=== PATIENT | female | born 1970 | race Caucasian/White ===

== ENCOUNTER → 2019-05-30 14:37 | Outpatient (CLI) | payer OTHER, SELFPAY ==
[2019-06-05 05:07] LABS: Age Gdln ACOG Testing 30-65 (.)
[2019-06-06 12:19] LABS: HPV APTIMA, High Risk Negative (Negative)
[2019-06-06 12:20] LABS: HPV Reflexed? YES, CHARGE PATIENT
== END ==
PROVIDERS: Referring Provider Obstetrics & Gynecology; Visit Provider Obstetrics & Gynecology
DX: Z12.4 Encounter for screening for malignant neoplasm of cervix (principal)
CPT/HCPCS: 87624; 88175; G0145

== ENCOUNTER → 2019-06-25 13:17 | Outpatient (CLI) | payer OTHER, SELFPAY ==
--- NOTE | 2019-06-25 13:26 | BI_ITS ---
MAMMOGRAPHY - BILATERAL SCREENING REASON FOR EXAM: Female, 48 years old. Routine annual screening examination. PERTINENT HISTORY: Non-contributory. TECHNIQUE: Digital bilateral breast victoriano (3D mammographic acquisition) in the CC and MLO projections. 2-D mediolateral oblique (MLO) and craniocaudad (CC) views of both breasts were obtained. CAD: Full Field Digital Mammography with Computer Added Detection was performed. COMPARISON: Comparison is made with prior study dated July 21, 2016. FINDINGS: Breast Composition: The breasts are heterogeneously dense, which may obscure small masses. There are no dominant masses or suspicious calcifications. Stable benign appearing bilateral axillary lymph nodes. No other significant abnormalities are identified. There has been no significant change since the prior study. BI/SCREEN MAMM (CAD) W/VICTORIANO BILAT IMPRESSION: Stable bilateral screening mammogram. Yearly follow-up mammogram recommended. (A) ASSESSMENT CATEGORY: BIRADS Category 2: Benign. A letter regarding these results will be sent to the patient by the facility within 30 days. Approximately 10% of breast cancers are not detected by mammography. A normal mammogram should not delay biopsy of a clinically suspicious abnormality. [id number] Electronically Signed: Pedro Beckford, at 14:49 EST , Service support ,
== END ==
PROVIDERS: Referring Provider Obstetrics & Gynecology; Visit Provider Obstetrics & Gynecology
DX: Z12.31 Encounter for screening mammogram for malignant neoplasm of breast (principal)
CPT/HCPCS: 77063; 77067

== ENCOUNTER 2019-07-04 10:22 | Day surgery (SDC) | payer OTHER, SELFPAY ==
--- NOTE | 2019-07-01 06:28 | HP.PCM_ITS ---
History and Physical Date of Admission: 07/04/19 On 06/25/2019, Debbie Kimball, a 48 year old female 3 0 0 0 3, pr esented for: -- Here for HOME DEPOT REP sono and follow up discussion re her heavy periods. CC of heavy, painful, clotty periods w/ 2 days out of the 6 being the worst. Some months worse than others, but always fearful the current one will be bad so she is afraid to leave the house. States she has never saturated a large pad per hr, but has in 2 hrs at times. Had been on OCPs in past. Has white coat syndrome. States she used a progesterone only ocp, but stopped taking this d/t daily EVANS's. States was taken off OCP in past d/t BP. On no prescription meds. C/S x 2 prior. had a vasectomy. Non-smoker. SONO today: no fibroids UTERUS: 9.4 x 8.6 x 5.8 cm and is retroverted and inhomogenous and globular in texture.. ENDOMETRIAL ECHO: 1.3 cm. RIGHT OVARY: 2.3 x 1.7 x 2 cm and contains a simple cyst measuring 1.8 x 1.4 x 1.3 cm. LEFT OVARY: 2.9 x .8 x .9 cm. Reviewed findings as above on sono. She was given information to read and consider prior re her options for treatment of heavier periods. Declines any OCP or hormonal contraception, no interest in IUD. Prefers to try the endometrial ablation. EB ALLERGIES: NKA and No Known Drug Allergies MEDICATIONS HISTORY: None. Review of Symptoms: GENERAL - Denies fever, or chills SKIN - Denies skin changes EYES - Denies visual changes EARS - Denies difficulty hearing NOSE - Denies nasal congestion or bleeding MOUTH - Denies sore throat or difficulty swallowing NECK - Denies pain or swelling RESPIRATORY - Denies shortness of breath or wheezing CARDIOVASCULAR - Denies palpitations or chest pain GASTROINTESTINAL - Denies nausea, vomiting, diarrhea, constipation GENITOURINARY - heavy menses MUSCULOSKELETAL - Denies joint or muscle pain NEUROLOGICAL - Denies localized numbness or weakness PSYCHIATRIC - Denies depression or anxiety ENDOCRINE - Denies heat or cold intolerance, weight loss or gain HEMATO-IMMUNOLOGIC - Denies excessive bleeding with cuts PAST HISTORY: Breast/Ovarian/Colon Cancers - Denies Infections - Chicken pox childhood Illnesses - allergies Accidents - no injuries of consequence History of Abnormal PAPS - yes, once, mild Hospitalizations - Childbirth and see surgery SURGICAL HISTORY: 1. 12/02/1998 2. 08/28/2003 , R Fortunato Repeat 3. Eyelid surgery, 12/07 MENSTRUAL HISTORY: LMP Known?- DefiniteAmount/Duration - 6 days, Regularity - Regular, Frequency - monthly days, LMP - 05/20/19, Age Onset Menarche - 14 PAST PREGNANCIES: Total Pregnancies - 3; Full Term Pregnancies - 3; Premature - 0; Abortions, Induced - 0; Abortions, Spontaneous - 0; Ectopics - 0; Multiple Births - 0; Living Children - 3 FAMILY HISTORY (OLD): Father: Hypothyroid. Brother: Hypertension. Maternal Grandfather: Heart Disease. Paternal Grandmother: Heart Disease. 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 Routine Gynecologic Exam no abnormal findings 2. Encounter For Screening Mammogram For Malignant Neoplasm Of Breast 3. Excessive Bleeding In The Premenopausal Period PLAN BY DIAGNOSIS: 1. Excessive Bleeding In The Premenopausal Period Has had several very heavy periods. Has passed large clots and has had to change protection to avoid over bleeding with clots. Limiting her lifestyle as insecure about leaving house when on her periods. Multiple OCPs in past. Declines other hormonal contraception for this. Reviewed other options at last visit and after consideration of the written material given at last visit: Declines IUD. Would like to proceed with hysteroscopy, D and C with endometrial ablation. Pelvic sono today , results reviewed: No fibroids. R,B,A of the procedure reviewed. Discussed anticipated preop, operative and postop recovery including pain postop and return to activities pos top. After discussion, requests surgery. Will schedule hysteroscopy, D and C and endometrial ablation. RTO for postop check 2 wk after scheduled procedure. The visit was approximately 20 minutes in length with most of the time spent in discussion and counseling. 2. Elevated Blood-pressure Reading, Without Diagnosis Of Hypertension Will continue to monitor BPs. Believes she has white coat syndrome.
[2019-07-04] VITALS (8 sets, daily range): BP systolic 128–147; BP diastolic 65–91; PULSE 65–86; RESP 16; TEMP 36.8–37.1; O2SAT 96–100; BMI 35.4
[2019-07-04 11:03] LABS: Internal QC Validated? YES +Cl - CLEAR BKGD; Pregnancy, Urine Negative Negative
[2019-07-04 11:04] LABS: Hematocrit 39.3 % (37-47); Hemoglobin 12.8 g/dL (12.0-15.0); Mean Corp Hgb Conc 32.6 g/dL (32-36); Mean Corpuscular Hgb 27.5 pg (27.0-32.0); Mean Corpuscular Volume 84.5 fL (81-99); Mean Platelet Vol. 9.2 fl (6.2-12.0); Platelet Count 215 K/mm3 (150-450); RBC Distribution Width CV 13.4 % (11.6-14.6); RBC Distribution Width SD 41.7 fl (35.1-43.9); Red Blood Count 4.65 M/mm3 (4.2-5.4); White Blood Count 4.9 K/mm3 (4.4-11.0)
[2019-07-04 11:12] LABS: International Normalized Ratio 1.1; Prothrombin Time (Protime)PT. 13.5 SECONDS (11.7-14.9)
[2019-07-04 11:13] LABS: Partial Thromboplast Time 30.8 Seconds (24.1-36.2)
[2019-07-04] MEDS: Lactated Ringers 1,000 ML 100 ML IV ×2 (11:22→14:08)
--- NOTE | 2019-07-04 12:00 | EMB_PTH ---
PATIENT: TONY PICHARDO [place] [facility] [id number] AGE/SX: 48/F ROOM: RE07/04/[address]: Dr. Roxie Low MD : 1970 BED: DIS: 07/04/2019 SPEC #: [id number] RECD: 07/04/19 16:47 STATUS: CARRIE RERosalie #: [id number] LISE: 07/04/19 12:[address]: Roxie Low DEPT: SURGICAL PATHOLOGY RECD BY: Néstor Lr ENTERED: 07/05/19 10:03 SP TYPE: ENDOM BX/C OTHR DR: Dr. Gt Floyd MD Tissues: Endometrium, NOS Procedures: Surgery Specimen Level IV HEADER OPERATION: Hysteroscopy, D & C hydroblation PRE-OP DIAGNOSIS: Excessive bleeding in premenopausal period TISSUE SUBMITTED: Endometrial curettings MICROSCOPIC DIAGNOSIS Endometrial curettings: Secretory endometrium. SJ:juan pablo 07/06/19 MICROSCOPIC DESCRIPTION Slides are reviewed. GROSS DESCRIPTION Received in fixative is one container labeled with the patient's name and designated endometrial curettings. The specimen consists of multiple mucoid fragments of light valles soft tissue that in aggregate measure 2.5 x 2 x 0.2 cm. The specimen is totally submitted in one cassette. / AM:juan pablo 07/05/19 TC:5 CPT: 03441
--- NOTE | 2019-07-04 12:31 | DCINST_ITS ---
Discharge Diet: No Restrictions Discharge Activity: May not drive while taking narcotic pain medications., May Shower, May Take a Tub Bath Return to work on:: 07/06/19 May resume sexual activity in: 1 week - when comfortable. Call your doctor if you observe: Fever of 101 or Higher, Inability to have a bowel movement, Using more than one pad per hour, Uncontrolled pain Allergies/Adverse Reactions: Allergies No Known Allergies Allergy (Verified 07/03/19 08:40) Medications to take at Discharge Ranitidine [Zantac] 150 mg PO PRN PRN 07/03/19 Oxycodone [Oxyir] 5 mg PO Q6H PRN PRN 1 Days #4 tablet 07/04/19 The following prescriptions were given: Oxycodone [Oxyir] 5 mg PO Q6H PRN PRN 1 Days #4 tablet PRN Reason: Mod-Severe Pain (-05/03) Transmission Status: Received by [id number] Primary Care Physician: Gt Floyd MD [Primary Care Provider] - Test Results: Test results from this visit will be discussed in further detail at your follow- up appointment, if applicable. Please Follow Up With: Roxie Low MD - [phone] When: in 1-2 wk for postop checkup Proposed Discharge Date: 07/04/19
[2019-07-04] MEDS: Lubricating Jelly 60 GM Tube 30 GM TOPICAL (13:00)
--- NOTE | 2019-07-04 16:56 | PCM.OPRPT ---
Report of Operation Date of Procedure: 07/04/19 Pre-Operative Diagnosis: Excessive bleeding in premenopause Post-Operative Diagnosis: Same Surgery/Procedure Performed:: Hysteroscopy, D and C, hydrothermal ablation. Description of Surgical Findings:: Findings: Hysteroscopic findings: Normal-appearing , fluffy endometrium. Neither tubal ostia visualized . Type of Anesthesia:: Local MAC Anesthesiologist: Shahram Queen CRNA Specimen's removed: Uterine curettings Drains: Red Reid prior to case, clear yellow urine Estimated Blood Loss (mL): 20 Fluids Replaced: LR Description of Procedure: Findings: Uterus anteverted. 10 cm cavity length with 4 cm cervical length. Hysteroscopic findings: Normal-appearing , fluffy endometrium. Neither tubal ostia visualized . Narrative account: After the risks, benefits, alternatives of the procedure have been reviewed with the patient, informed consent was obtained. The patient was taken to the operating room with an IV running. She was positioned on the operating table in dorsal supine position, where she was given MAC IV sedation. Once asleep she was repositioned into the dorsal lithotomy position and prepped and draped in the usual sterile fashion. A red Reid catheter was used to drain the bladder prior to initiating the case. A Graves speculum was placed into the vagina and the cervix was brought into view. A single-tooth tenaculum was applied to the anterior lip of the cervix. 10 cc of lidocaine with epinephrine was instilled as a paracervical block. The cervix was sequentially dilated to allow admission of the hysteroscope. The uterus sounded to 10 cm and was slightly anteverted with a 4 cm endocervical length. The hysteroscopy was performed with the findings noted above. A sharp curettage was then performed and pieces of tissue were were withdrawn and set aside for later pathology review. There was good crei in all quadrants The Denise device was opened but due, likely, to the irregularly shaped uterine cavity the device would not open properly within the uterus and could not be used for the ablation. The Hydrothermal ablation device was brought into the room and set up. The 10 minute Hydrothermal ablation (HTA) was performed. At the completion of the treatment cycle the device was cooled and removed from the patient. At this point the procedure was terminated the single-toothed tenaculum was removed from the anterior lip of the cervix and a Ray-Sari gauze was used to remove any remaining tissue and blood from the upper vagina and cervix. Excellent hemostasis was noted. The speculum was removed. The patient was returned to dorsal supine position and awakened from IV sedation and then transferred to her recovery room bed in stable condition after tolerating the procedure well. Sponge, lap, needle, and instrument counts were correct x2. Medications given intraoperatively included 10 cc of lidocaine with epinephrine instilled as a paracervical block. For complete listing the medications given intraoperatively, see the anesthesia record. - Complications None. - Admit VTE Documentation VTE Present on Admission: No VTE Mechan Device Prophylaxis: [facility] [place] Prophylaxis ordered?: No
== END 2019-07-04 15:34 | disposition home or self-care (01) ==
LOC: SDC 10:41 → AC 10:41
PROVIDERS: Anesthesiology; Family Provider Family Medicine; PCP Family Medicine; Referring Provider Obstetrics & Gynecology; Visit Provider Obstetrics & Gynecology
PROC: 0U5B8ZZ Destruction of Endometrium, Via Natural or Artificial Opening Endoscopic (ICD-10-PCS; CPT 58558; principal; 2019-07-04 11:45)
DX: N92.4 Excessive bleeding in the premenopausal period (principal); R03.0 Elevated blood-pressure reading, without diagnosis of hypertension
CPT/HCPCS: 00952; 58563; 36415; 81025; 85027; 85610; 85730; 86850; 86900; 86901; 88305; J7120; J2405

== ENCOUNTER → 2019-11-28 | Outpatient (CLI) | payer OTHER, SELFPAY ==
[2019-07-04 11:11] VITALS: BMI 35.4
[2019-11-28 18:14] LABS: Hematocrit 31.5 % (37-47); Hemoglobin 9.8 g/dL (12.0-15.0)
== END | disposition home or self-care (01) ==
PROVIDERS: Visit Provider Obstetrics & Gynecology
DX: N92.0 Excessive and frequent menstruation with regular cycle (principal)
CPT/HCPCS: 85014; 85018

== ENCOUNTER → 2020-02-13 14:34 | Outpatient (CLI) | payer OTHER, SELFPAY ==
[2019-07-04 11:11] VITALS: BMI 35.4
[2020-02-13 15:52] LABS: Hematocrit 40.9 % (37-47)
== END ==
PROVIDERS: Visit Provider Obstetrics & Gynecology
DX: N92.4 Excessive bleeding in the premenopausal period (principal)
CPT/HCPCS: 36415; 85014; 85018

== ENCOUNTER → 2021-03-24 12:12 | Outpatient (CLI) | payer OTHER, SELFPAY ==
--- NOTE | 2021-03-24 12:21 | US_ITS ---
INDICATION: UTI EXAMINATION: Ultrasound US Kidney(s) complete (eg, kidneys and bladder) TECHNIQUE: Masters scale and color doppler images were obtained of the kidneys. COMPARISON: None. FINDINGS: RIGHT KIDNEY: Limited evaluation of the lower pole of the right kidney due to bowel gas. The right kidney demonstrates unremarkable echogenicity, unremarkable vascularity, unremarkable size, shape and configuration, no evidence of renal masses is seen. No evidence of renal stones is seen. No evidence of hydronephrosis or hydroureter is seen. In the right renal cortex is unremarkable measuring 1.2 cm. The right kidney measures 10.1 x 5.4 x 3.8 cm. LEFT KIDNEY: The left kidney demonstrates unremarkable echogenicity, unremarkable vascularity, unremarkable size, shape and configuration, no evidence of renal masses is seen. No evidence of renal stones is seen. No evidence of hydronephrosis or hydroureter is seen. In the left renal cortex is unremarkable measuring 1.6 cm. The left kidney measures 10.9 x 4.8 x 4.6 cm. The urinary bladder demonstrates unremarkable anechoic internal echogenicity with no evidence of masses or stones. The wall of the urinary bladder is unremarkable measuring 0.3 cm. The left ureteric jet is visualized, right vertebral injected bowel visualized. Prevoid urinary bladder volume is 611.12 mL. Post void residual urinary bladder volume is 49.70 mL. US/Kidney and Bladder IMPRESSION: Unremarkable kidneys, post void residual urinary bladder volume of 49.70 mL. Electronically Signed: Augustine Owens MD at 15:03 EDT Tel , Service support ,
== END ==
PROVIDERS: PCP Family Medicine; Referring Provider Urology; Visit Provider Urology
DX: N39.0 Urinary tract infection, site not specified (principal)
CPT/HCPCS: 76770